=== PATIENT | male | born 1980 | race Caucasian/White ===

== ENCOUNTER 2017-06-16 23:00 | Inpatient (IN) | payer OTHER ==
[~2017-06-16] VITALS: Ht 182.9 cm; Wt 127.0 kg
--- NOTE | ~2017-06-16 | PA ---
Unit #: [id number] #: [id number] Patient: TAHIR SILVERMAN [id number] [facility] [address] [place] [address] [id number] I MR#: [id number] NAME: TAHIR SILVERMAN. ROOM: P179 Age: 37 Sex: M Admission Date: 06/17/2017 : 1980 Date of Assessment: Attending Physician: Heriberto Mccormick M.D. Admitting Physician: Heriberto Mccormick M.D. Primary Care Physician: Generic Doctor Not In System PSYCHIATRIC ASSESSMENT DATE OF SERVICE 06/17/2017. IDENTIFYING DATA Mr. Silverman is a 37-year-old single white male, who is a resident of [place], [place], and is known to us from previous encounter, was self-referred to the hospital on a voluntary basis. CHIEF COMPLAINT "I'm losing it. I'm hearing voices. I feel people are following me." HISTORY OF PRESENT ILLNESS Mr. Silverman is a 37-year-old white male, who was brought to the hospital stating that he believes that people are following him and that he has been hearing voices, that he thinks that he is losing and reports that he thinks that [facility] and reportedly has been using a gram of heroin and methamphetamine a day with last use yesterday and reports he does not remember the last couple of months and reports suicidal ideation without a plan. He also reports that he may hurt someone because he does not know who is who and reports that he has been using drugs and does endorse increasing depression, anxiety, paranoia, looseness of association, feelings of hopelessness and helplessness, and suicidal and vague homicidal ideations and as such, recommendation for inpatient level of care for safety and stabilization was made and the patient was transferred to us. SUBSTANCE ABUSE HISTORY The patient reports history of alcohol, cannabis, cocaine, opioids, amphetamines, and benzodiazepine abuse, and currently, he reports that he has been using a gram of methamphetamine IV a day and half a gram of IV heroin a day and has been using cocaine and cannabis on regular basis as well. PAST PSYCHIATRIC HISTORY The patient has had history of inpatient psychiatric and chemical dependency treatment at [facility], at [facility]. Review of the medical records indicate currently he is not taking any treatment program, is not seeing a psychiatrist, and is not taking any psychotropic medications. PAST MEDICAL HISTORY Hepatitis C. Unit #: [id number] #: [id number] Patient: TAHIR SILVERMAN ALLERGIES No known medication allergies. CURRENT MEDICATIONS None. PERSONAL AND SOCIAL HISTORY A 37-year-old white male, who reports that he lives at home with his girlfriend and has fairly decent social support system. MENTAL STATUS EXAMINATION Young white male who was casually dressed with fair personal hygiene, appears to be in no acute distress or discomfort. He was awake and alert on interaction with intact orientation. His mood was anxious and depressed with a congruent affect. His speech was slow and restricted in content. His thought processes were disorganized with some looseness of associations and paranoid ideations and suicidal ideations. His insight and judgment remain significantly impaired. DIAGNOSTIC IMPRESSION Psychiatric: Bipolar disorder, most recent episode depressed, recurrent, moderate, with psychosis; opioid dependence, moderate; methamphetamine dependence, moderate; cannabis dependence, moderate; cocaine dependence, moderate. Medical: Hepatitis C. Stressors: Moderate psychosocial stressors. TREATMENT PLAN 1. The patient has presented with history of substance abuse and mood disorder, and has been decompensating and will need inpatient hospitalization for safety and stabilization. We will start him back on his home medications. We will adjust the medications and monitor response. 2. Supportive therapy was provided to the patient. 3. Safe, structured, and nourishing environment will be provided. ESTIMATED LENGTH OF STAY 5 to 7 days. ABILITY TO HELP SELF Limited. WILLINGNESS TO HELP SELF The patient appears to be willing to help self. STRENGTHS 1. Communicative. 2. Cooperative. PROBLEMS 1. Chronic dysphoric symptoms. 2. Chronic chemical dependency. 3. Poor social support system. DISCHARGE CRITERIA This will be contingent upon the patient's ability to show resolution of his depression and psychosis as well as ability to stay safe to himself and others, particularly after discharge from the hospital. Unit #: [id number] #: [id number] Patient: TAHIR SILVERMAN Dictated by... Nicole Ventura/shad TD: 06/17/2017 06:47 JOB #: [id number] PSYCHIATRIC ASSESSMENT Page 1 of 1 X Heriberto Mccormick MD PSYCHIATRIC ASSESSMENT
--- NOTE | ~2017-06-16 | PN ---
Unit #: [id number] #: [id number] Patient: TAHIR SILVERMAN [id number] [facility] [address] [place] [address] [id number] I MR#: [id number] NAME: TAHIR SILVERMAN. ROOM: P179 Age: 37 Sex: M Admission Date: 06/17/2017 : 1980 Attending Physician: Heriberto Mccormick M.D. Admitting Physician: Heriberto Mccormick M.D. Primary Care Physician: Generic Doctor Not In System [facility] PROGRESS NOTES DATE June 21, 2017 DISCUSSION Mr. Silverman is a 37-year-old white male, who was seen today and chart was reviewed and the case was discussed with the staff. He has been anxious, withdrawn, and rather seclusive to himself. Meanwhile, he has been cooperative with the treatment recommendations and he has been taking the medications and tolerating them fairly well with no reported side effects. MENTAL STATUS EXAMINATION Young white male, who was casually dressed with fair personal hygiene and appears to be in no acute distress or discomfort. He was awake and alert on interaction with intact orientation. His mood is anxious with a congruent affect. His speech is slow and goal-directed. He denies any suicidal or homicidal ideations, and also denies any auditory or visual hallucinations. His insight and judgment remain slightly impaired. TREATMENT PLAN 1. We will continue him on his current medications and treatment protocol, and will monitor his response to the medications, and make further adjustments as needed. 2. We will continue to followup. Dictated by... Nicole Ventura/cole TD: 06/22/2017 09:04 JOB #: [id number] Unit #: [id number] #: [id number] Patient: TAHIR SILVERMAN [facility] PROGRESS NOTES Page 1 of 1 X Heriberto Mccormick MD PROGRESS NOTE
--- NOTE | ~2017-06-16 | PN ---
Unit #: [id number] #: [id number] Patient: TAHIR SILVERMAN [id number] [facility] [address] [place] [address] [id number] I MR#: [id number] NAME: TAHIR SILVERMAN. ROOM: P179 Age: 37 Sex: M Admission Date: 06/17/2017 : 1980 Attending Physician: Heriberto Mccromick M.D. Admitting Physician: Heriberto Mccormick M.D. Primary Care Physician: Generic Doctor Not In System [facility] PROGRESS NOTES DATE June 18, 2017 DISCUSSION Mr. Silverman is a 37-year-old white male, with bipolar disorder and substance abuse, who was seen today and chart was reviewed and the case was discussed with the staff. He has been anxious, withdrawn, but has not shown any agitation or irritability and has been wanting to get back on bipolar medication particularly Neurontin, meanwhile, he has been doing somewhat better than yesterday but still has been in some distress and discomfort. MENTAL STATUS EXAMINATION Young white male, who was casually dressed with fair personal hygiene and appears to be in no acute distress or discomfort. He was awake and alert with impaired attention and concentration. His mood is anxious with a congruent affect. He denies any suicidal or homicidal ideations. His insight and judgment remain slightly impaired. TREATMENT PLAN 1. We will continue him on his current medications and treatment protocol, and will monitor his response to the medications, and make further adjustments as needed. 2. We will continue to followup. Dictated by... Nicole Ventura/cole TD: 06/18/2017 13:02 JOB #: [id number] Unit #: [id number] #: [id number] Patient: TAHIR SILVERMAN ALEXANDRA PROGRESS NOTES Page 1 of 1 X Heriberto Mccormick MD PROGRESS NOTE
--- NOTE | ~2017-06-16 | PN ---
Unit #: [id number] #: [id number] Patient: TAHIR SILVERMAN [id number] [facility] [address] [place] [address] [id number] I MR#: [id number] NAME: TAHIR SILVERMAN. ROOM: P179 Age: 37 Sex: M Admission Date: 06/17/2017 : 1980 Attending Physician: Heriberto Mccormick M.D. Admitting Physician: Heriberto Mccormick M.D. Primary Care Physician: Generic Doctor Not In System [facility] PROGRESS NOTES DATE June 19, 2017 DISCUSSION Mr. Silverman is a 37-year-old white male, who was seen today and chart was reviewed and the case was discussed with the staff. He has been anxious, withdrawn, and seclusive to himself. He has been cooperative with the treatment recommendations and he has been taking the medications and tolerating them fairly well with no reported side effects. MENTAL STATUS EXAMINATION Young white male, who was casually dressed with fair personal hygiene and appears to be in no acute distress or discomfort. He was awake and alert with intact orientation. His mood is anxious with a congruent affect. He denies any suicidal or homicidal ideations. His insight and judgment remain slightly impaired. TREATMENT PLAN 1. We will continue him on his current medications and treatment protocol, and will monitor his response to the medications, and make further adjustments as needed. 2. We will continue to followup. Dictated by... Nicole Ventura/cole TD: 06/19/2017 10:44 JOB #: [id number] Unit #: [id number] #: [id number] Patient: TAHIR SILVERMAN [facility] PROGRESS NOTES Page 1 of 1 X Heriberto Mccormick MD PROGRESS NOTE
--- NOTE | ~2017-06-16 | PN ---
Unit #: [id number] #: [id number] Patient: TAHIR SILVERMAN [id number] [facility] [address] [place] [address] [id number] I MR#: [id number] NAME: TAHIR SILVERMAN. ROOM: P179 Age: 37 Sex: M Admission Date: 06/17/2017 : 1980 Attending Physician: Heriberto Mccormick M.D. Admitting Physician: Heriberto Mccormick M.D. Primary Care Physician: Generic Doctor Not In System [facility] PROGRESS NOTES DATE 06/20/2017 DISCUSSION Mr. Silverman is a 37-year-old white male who was seen today and chart was reviewed and case was discussed with the staff. He has been anxious, withdrawn, agitated, irritable and showing negative attitude towards treatment. Meanwhile, he has been taking the medications and tolerating them fairly well with no reported side effects. MENTAL STATUS EXAMINATION Young white male who was casually dressed with fair personal hygiene and appears to be in no acute distress or discomfort. He was awake and alert with intact orientation. His mood was anxious with congruent affect. His speech is slow and goal-directed. He denies any suicidal or homicidal ideation. His insight and judgement remains slightly impaired. TREATMENT PLAN 1. Will continue on his current treatment protocol. Will monitor his response to the medications and make further adjustments as needed. 2. Will continue to follow up. Dictated by... Heriberto Mccormick M.D. IAA/aminah TD: 06/20/2017 18:33 JOB #: [id number] Unit #: [id number] #: [id number] Patient: TAHIR SILVERMAN [facility] PROGRESS NOTES Page 1 of 1 X Heriberto Mccormick MD PROGRESS NOTE
--- NOTE | ~2017-06-16 | DS ---
Unit #: [id number] #: [id number] [facility] [id number] [facility] [address] [place] [address] [id number] I MR#: [id number] NAME: TAHIR SILVERMAN. ROOM: P179 Age: 37 Sex: M Admission Date: 06/17/2017 : 1980 Discharge Date: 06/22/2017 Attending Physician: Heriberto Mccormick M.D. Primary Care Physician: Generic Doctor Not In System DISCHARGE SUMMARY IDENTIFYING DATA Mr. Silverman is a 37-year-old, single, white male, who is a resident of [place], [place], and is known to us from previous encounter, was self-referred to the hospital on voluntary basis. CHIEF COMPLAINT "I'm losing it. I'm hearing voices. I feel people are following me." DISCHARGE DIAGNOSES Psychiatric: Bipolar disorder, most recent episode depressed, recurrent, moderate, with psychosis; opioid dependence, moderate; methamphetamine dependence, moderate; cannabis dependence, moderate; cocaine dependence, moderate. Medical: Hepatitis C. Stressors: Moderate psychosocial stressors. HISTORY OF PRESENT ILLNESS Please see initial psychiatric evaluation for details. PAST PSYCHIATRIC HISTORY Please see initial psychiatric evaluation for details. PAST MEDICAL HISTORY Please see initial psychiatric evaluation for details. HOSPITAL COURSE The patient was admitted to the adult psychiatric unit at [facility] and was oriented to the hospital environment. Routine p.r.n. medications were initiated, and he was started back on his home medications and Risperdal and lithium were added for bipolar and psychosis and detox protocol was initiated as well and he was closely monitored. He was taking the medications regularly and was tolerating them fairly well and was able to show a decent and therapeutic response and was able to come out of the detox without any complications and was willing to continue treatment on an outpatient basis and as such, it was decided that he will be discharged home and will continue treatment on an outpatient basis. DISCHARGE MEDICATIONS Risperdal 1 mg b.i.d. for bipolar, restlessness and psychosis; lithium 450 mg b.i.d. for bipolar. Unit #: [id number] #: [id number] Patient: TAHIR SILVERMAN DISCHARGE CONDITION Stable. PROGNOSIS Fair. Dictated by... IrfNicole Albrecht/shad TD: 06/24/2017 00:01 JOB #: [id number] DISCHARGE SUMMARY Page 1 of 1 X Heriberto Mccormick MD DISCHARGE SUMMARY
--- NOTE | ~2017-06-16 | HP ---
Unit #: [id number] #: [id number] Patient: VINCE SILVA [id number] [place] [address] [id number] I MR#: [id number] NAME: VINCE SILVA. ROOM: P179 Age: 37 Sex: M Admission Date: 06/17/2017 : 1980 Attending Physician: Heriberto Mccormick M.D. Admitting Physician: Heriberto Mccormick M.D. Primary Care Physician: Generic Doctor Not In System HISTORY AND PHYSICAL HISTORY OF PRESENT ILLNESS Vince is a 37-year-old male admitted on 06/17/2017 to [facility] for psychosis and detox from heroin. PAST MEDICAL HISTORY Obesity, hepatitis C, degenerative disc disease, hypertension and chronic pain. PAST SURGICAL HISTORY Left knee replacement. SOCIAL HISTORY Smokes one pack of cigarettes daily, reports binge alcohol use and daily heroin use. He is currently single and living with his mother. FAMILY HISTORY Noncontributory. REVIEW OF SYSTEMS CONSTITUTIONAL: No fever or chills. HEENT: Denies any sore throat, ear pain or runny nose. CARDIOVASCULAR: Denies chest pain, irregular heart rhythm or palpitations. CHEST: Denies shortness of breath or cough. No hemoptysis. GASTROINTESTINAL: Denies nausea, vomiting, diarrhea or chronic constipation. ENDOCRINE: Denies history of increased thirst or urination. No recent significant weight loss or gain. GENITOURINARY: Denies dysuria, frequency, or hematuria. SKIN: Denies any rashes. HEMATOLOGIC: Denies history of increased bleeding or bruising. MUSCULOSKELETAL: Denies any hot, swollen joints. No generalized muscle pain. NEUROLOGIC: Denies problems with vision or speech. No frequent, severe headaches. No numbness, tingling or weakness in any extremities. Denies loss of bladder or bowel control. CURRENT MEDICATIONS None. ALLERGIES None. Unit #: [id number] #: [id number] Patient: VINCE SILVA PHYSICAL EXAMINATION GENERAL: Alert, oriented, in no acute distress. VITAL SIGNS: Blood pressure 154/108, heart rate 101. HEIGHT: 6 foot 0. WEIGHT: 280 pounds. SKIN: Warm and dry without rash or lesion. HEENT: Normocephalic. TMs not viewed. Oral and nasal passages clear. Conjunctivae clear. PERRLA. EOMs intact. NECK: Supple without lymphadenopathy or thyromegaly. HEART: Regular rate and rhythm without murmur. LUNGS: Clear. ABDOMEN: Soft, nontender, without masses or hepatosplenomegaly. : Not done. EXTREMITIES: No evidence of cyanosis, clubbing or edema. Moves all without focal deficit. NEUROLOGICAL: Grossly within normal limits. Cranial Nerves: II: Visual davis are intact. III, IV AND : Extraocular movements are intact. Pupils are equal, round and reactive to light. V: Facial sensation is grossly normal. VII: Facial movements and expression are normal. VIII: Auditory acuity grossly intact. IX, X: Uvula is midline. Phonation is normal. XI: Patient shrugs shoulders and turns head normally. XII: Tongue protrudes in the midline. Sensory and Motor Function: Sensory and motor sensation is grossly normal. Motor: moves all extremities well. Coordination: Gait is normal. Deep Tendon Reflexes: Intact. IMPRESSION 1. Psychiatric admission. 2. Obesity. 3. Hepatitis C. 4. Degenerative disc disease. 5. Hypertension. 6. Chronic pain. RECOMMENDATIONS Psychiatric, per psychiatrist. MEDICAL: I see no contraindications to participating in facility's activities. MEDICAL PROGNOSIS Good. MEDICAL CONDITION Stable. Dictated by... Kian Martino/laura Unit #: [id number] #: [id number] Patient: VINCE SILVA TD: 06/18/2017 01:40 JOB #: [id number] HISTORY AND PHYSICAL Page 1 of 1 X GARRY BUSTILLO APRN HISTORY AND PHYSICAL
[~2017-06-16 23:00] MED LIST: DIAZEPAM PO; LORTAB 10/500 T1 TAB PO; ZESTORETIC 20/21 TAB PO
[2017-06-17 09:55] LABS: BASOPHIL% 0.3 % (0-2.5); EOSINOPHIL# 0.3 X10e3 (0-0.7); EOSINOPHIL% 2.5 % (0.0-7.0); HEMATOCRIT 46.6 % (38.0-50.0); HEMOGLOBIN 16.4 gm/dL (13.0-16.0); LYMPHOCYTE# 4.6 X10e3 (1.0-3.5); LYMPHOCYTE% 33.8 % (17.0-45.0); MEAN CELL VOLUME 85.3 FL (83-96); MEAN CORPUSCULAR HGB CONC 35.2 g/dL (30-36); MONOCYTE# 1.5 X10e3 (0-1.0); MONOCYTE% 10.6 % (3.0-12.0); NEUTROPHIL# 7.2 X10e3 (1.5-7.1); NEUTROPHIL% 52.8 % (40-75); PLATELET COUNT 287 X10e3 (140-420); RED BLOOD COUNT 5.46 X10e (3.90-5.60); RED CELL DISTRIBUTION WIDTH 13.3 % (11.0-15.5); WHITE BLOOD COUNT 13.7 X10e3 (4.0-10.5)
[2017-06-17 10:05] LABS: DIFF IND NO
[2017-06-17 10:22] LABS: ALBUMIN SERUM 3.9 g/dL (3.5-5.0); BILIRUBIN,TOTAL 0.9 mg/dL (0.2-2.0); BUN/CREATININE RATIO 15.55; CALCIUM SERUM 9.2 mg/dL (8.4-10.2); CREATININE SERUM 0.9 mg/dL (0.6-1.4); GLOM FILT RATE Estimated 107.2 mL/min (>60); POTASSIUM 3.2 mmol/L (3.5-5.1); PROTEIN TOTAL SERUM 6.7 g/dL (6.0-8.3)
[2017-06-18 10:06] LABS: URINE APPEARANCE TURBID; URINE BLOOD NEG (NEG); URINE COLOR DK YELLOW; URINE GLUCOSE NEG (NEG); URINE KETONE TRACE (NEG); URINE LEUKOCYTE ESTERASE TRACE (NEG); URINE NITRATE NEG (NEG); URINE PROTEIN NEG (NEG); URINE UROBILINOGEN >8.0 MG/DL (NEG)
[2017-06-18 10:08] LABS: URINE BACTERIA AUWI NEG (NEGATIVE); URINE SQUAMOUS EPITHELIAL CELL OCC /[HPF]
[2017-06-18 10:21] LABS: URINE BILIRUBIN NEG (NEG)
[2017-06-18 11:10] LABS: AMPHETAMINE POS (NEG); BARBITURATES NEG (NEG); BENZODIAZEPINES NEG (NEG); COCAINE NEG (NEG); MARIJUANA POS (NEG); OPIATES NEG (NEG); TRICYCLIC ANTIDEPRESSANTS NEG (NEG); U METHADONE NEG (NEG)
== END 2017-06-22 09:45 | DRG 885 ==
LOC: P1E 06-17 01:19
PROVIDERS: Psychiatry & Neurology Psychiatry
PROC: HZ2ZZZZ Detoxification Services for Substance Abuse Treatment (ICD-10-PCS; principal; 2017-06-17)
DX: F31.5 Bipolar disorder, current episode depressed, severe, with psychotic features (principal); F11.20 Opioid dependence, uncomplicated; F15.20 Other stimulant dependence, uncomplicated; F14.20 Cocaine dependence, uncomplicated; F12.20 Cannabis dependence, uncomplicated; F17.210 Nicotine dependence, cigarettes, uncomplicated; Z96.652 Presence of left artificial knee joint
CPT/HCPCS: 80053; 80307; 81003; 85025